=== PATIENT | male | born 1960 | race Caucasian/White ===

== ENCOUNTER → 2024-04-25 09:00 | Outpatient (REF) | payer OTHER, SELFPAY | LOC: DHSLP 09:00 | PROVIDERS: ATTENDING PHYSICIAN Internal Medicine Pulmonary Disease; FAMILY PHYSICIAN Internal Medicine | DX: G47.33 Obstructive sleep apnea (adult) (pediatric) (principal); G47.01 Insomnia due to medical condition | CPT/HCPCS: 95810 ==